=== PATIENT | female | born 1995 | race Two or more races ===

== ENCOUNTER 2021-02-03 21:14 | Emergency (ER) | payer OTHER ==
[~2021-02-03] VITALS: Ht 154.9 cm; Wt 59.0 kg
[2021-02-04] MEDS ORDERED: TOPUD MT (00:53)
[2021-02-04] MEDS ORDERED: ACETAMINOPHEN 325MG TABLET PO ONE (01:00)
[2021-02-04 01:26] VITALS: BP 129/75
== END 2021-02-04 02:37 | disposition home or self-care (01) ==
LOC: ER 21:14
DX: S81.851A Open bite, right lower leg, initial encounter (principal); W59.01XA Bitten by nonvenomous lizards, initial encounter; Y93.89 Activity, other specified; Y92.9 Unspecified place or not applicable; Z98.82 Breast implant status; Z98.84 Bariatric surgery status
CPT/HCPCS: 99282